=== PATIENT | male | born 1960 | race Caucasian/White ===

== ENCOUNTER 2017-02-24 14:40 | Observation (INO) | payer SELFPAY ==
--- NOTE | 2017-02-24 15:03 | DR.EXTPAIN ---
HPI - Time seen Time seen: 15:00 - PCP Primary Care Physician: SOLO APODACA - HPI Comment HPI Comment: HAPPEN BEFORE COMING. - Complaint/Symptoms Chief Complaint Doctor Comments: RIGHT ANKLE INJURY, SWELLING AND PAIN PRESENT. Chief Complaint:: INJURED RIGHT ANKLE ON [employer]. ANKLE SLIPPED BETWEEN MACHINE AND. COMPLAINS OF PAIN. EDEMA NOTED.PT STILL HAS HIS CARMELO TOPPED WORK BOOT ON AND NOTED MARCOS AT TOP OF IT - Nurses notes reviewed Nurses Notes Review: Yes - Source History Provided: Patient - Mode of arrival Mode of Arrival: Wheelchair - Timing Onset of Chief Complaint: 02/24/17 - Context History of: None - Associated signs and symptoms Associated Signs and Symptoms: Pain, Swelling, Bruising PMH - PMH Past Medical History: Yes Past Medical History: Anxiety, Hypertension Past Surgical History: Yes Surgical History: Other Past Surgical History Comment: BACK AND HERNIA - Family History History of Family Medical Conditions: Yes Family Medical History: Diabetes Mellitus - Social History Do you use any recreational Drugs:: No (RECOVERING ADDICT) Lives Where: Home - infectious screening In the last 2 months have you had wt loss of >10#?: NO Have you had fever, night sweats or hemotysis?: No Have you traveled outside the country in the last 6 months?: No Isolation: Standard ROS - Review of Systems Constitutional: No Symptoms Reported Eyes: No Symptoms Reported ENTM: No Symptoms Reported Respiratoy: No Symptoms Reported Cardiovascular: No Symptoms Reported Gastrointestinal/Abdominal: No Symptoms Reported Genitourinary: No Symptoms Reported Neurological: No Symptoms Reported Musculoskeletal: Right, Ankle Integumentary: No Symptoms Reported Hematologic/Lymphatic: No Symptoms Reported Endocrine: No Symptoms Reported All Other Systems: Reviewed and Negative PE - Vital Signs Vitals: Temperature 97.9 F Pulse Rate 74 Respiratory Rate 16 Blood Pressure [Right Arm] 117/73 Blood Pressure [Left Arm] 130/75 Blood Pressure 139/92 O2 Sat by Pulse Oximetry 96 - General Limitations: No Limitations General Appearance: Alert - Head Head Exam: Normal Inspection - Eyes Eye exam: Normal Appearance - ENT ENT Exam: Normal External Ear Exam - Neck Neck Exam: Trachea Midline - Chest Chest Inspection: Symmetric Chest Wall Rise - Respiratory Respiratory Exam: Normal Lung Sounds Bilat Respiratory Exam: Bilateral Clear to Auscultation - Cardiovascular Cardiovascular Exam: Regular Rate, Normal Rhythm, Normal Heart Sounds - Abdominal Exam Abdominal Exam: Normal Inspection - Extremities Extremities Exam: Tenderness (RT ANKLE SWOLLEN MEDIAL MALLEOLUS WITH TENDERNESS AND DECRESE ROM.) - Lower Extremities Gait Exam: Observed & Limited by Pain - Back Back Exam: Normal Inspection - Neurological Neurological Exam: Alert, Oriented X3 - Skin Skin Exam: Normal Color MDM - Differential Diagnosis Differential Diagnosis: Contusion, Fracture, Sprain Course - Treatment Treatment: SEE ORDERS - Consultation Consultation Comments: DISCUSS PATIENT WITH DR. KELLER. HE WILL ADMIT PT AND CONSULT ORTHO. - Education/Counseling Education/Counseling: Patient, Education Educated On: Diagnosis ROR - Labs Reviewed Laboratory Results Reviewed?: Yes Result Diagrams: 02/24/17 16:24 02/24/17 16:24 Laboratory: WBC 9.4 X10^3/uL (3.6-10.0) 02/24/17 16:24 RBC 5.12 X10^6/uL (4.7-6.0) 02/24/17 16:24 Hgb 16.1 g/dL (13.5-18.0) 02/24/17 16:24 Hct 46.4 % (42.0-54.0) 02/24/17 16:24 MCV 90.5 fL (80.0-100.0) 02/24/17 16:24 MCH 31.3 pg (27.0-34.0) 02/24/17 16:24 MCHC 34.6 g/dL (33.0-35.0) 02/24/17 16:24 RDW 12.9 % (11.6-16.5) 02/24/17 16:24 Plt Count 310 X10^3/uL (150.0-450.0) 02/24/17 16:24 MPV 7.9 fL (7.4-11.0) 02/24/17 16:24 Neut % 64.8 % (42.0-75.0) 02/24/17 16:24 Lymph % 21.9 % (21.0-51.0) 02/24/17 16:24 Reagan % 9.5 % (0.0-13.0) 02/24/17 16:24 Eos % 2.8 % (0.9-2.9) 02/24/17 16:24 Baso % 1.0 % (0.2-1.0) 02/24/17 16:24 Neut # 6.1 x10^3/uL (2.2-4.8) H 02/24/17 16:24 Lymph # 2.0 X10^3/uL (1.3-2.9) 02/24/17 16:24 Reagan # 0.9 x10^3/uL (0.3-0.8) H 02/24/17 16:24 Eos # 0.3 x10^3/uL (0.0-0.2) H 02/24/17 16:24 Baso # 0.1 X10^3/uL (0.0-0.1) 02/24/17 16:24 Absolute Nucleated RBC 0.1 /100WBC 02/24/17 16:24 - XRAY XRAY Interpreted by: Radiologist XRAY Findings: REPORT DISCUSS WITH PATIENT. - Diagnosis Discharge Problem: Closed right ankle fracture Qualifiers: Encounter type: initial encounter Qualified Code(s): S82.891A - Other fracture of right lower leg, initial encounter for closed fracture - Discharge Plan Condition: Stable - Follow ups/Referrals Follow ups/Referrals: SOLO APODACA [Primary Care Provider] - 3 days - Instructions
[2017-02-24] MEDS ORDERED: TORADOL 60 MG VIAL IM ONE (15:14)
[2017-02-24] MEDS ORDERED: TORADOL 60 MG VIAL ONE (15:17)
--- NOTE | 2017-02-24 15:20 | RAD ---
HISTORY: Right ankle pain status post injury. Study: Three views of the right ankle. Comparison: None. Findings: There is a displaced medial malleolus fracture with associated soft tissue swelling and effusion. The talar dome and ankle mortise otherwise appear intact. Remaining osseous structures appear intact. Sm all plantar base calcaneal enthesophyte. IMPRESSION: Medial malleolus fracture. Reported By:
--- NOTE | 2017-02-24 16:21 | RAD ---
Examination: Portable AP chest History: Preop Comparison 11/04/2015 Findings: Continued normal heart size with clear lungs and pleural spaces. Again is demonstrated a sp inal stimulator device in the thoracic spinal canal. Impression: No change; no acute disease. Reported By:
[2017-02-24 16:45] LABS: BASOPHILS # (AUTO) 0.1 X10^3/uL (0.0-0.1); EOSINOPHILS # (AUTO) 0.3 x10^3/uL (0.0-0.2); EOSINOPHILS % (AUTO) 2.8 % (0.9-2.9); HEMATOCRIT 46.4 % (42.0-54.0); HEMOGLOBIN 16.1 g/dL (13.5-18.0); LYMPHOCYTES % (AUTO) 21.9 % (21.0-51.0); MEAN CORPUSCULAR HEMOGLOBIN 31.3 pg (27.0-34.0); MEAN CORPUSCULAR HGB CONC 34.6 g/dL (33.0-35.0); MEAN CORPUSCULAR VOLUME 90.5 fL (80.0-100.0); MEAN PLATELET VOLUME 7.9 fL (7.4-11.0); MONOCYTES # (AUTO) 0.9 x10^3/uL (0.3-0.8); MONOCYTES % (AUTO) 9.5 % (0.0-13.0); NEUTROPHILS # (AUTO) 6.1 x10^3/uL (2.2-4.8); NEUTROPHILS % (AUTO) 64.8 % (42.0-75.0); PLATELET COUNT 310 X10^3/uL (150.0-450.0); RED BLOOD COUNT 5.12 X10^6/uL (4.7-6.0); RED CELL DISTRIBUTION WIDTH 12.9 % (11.6-16.5); WHITE BLOOD COUNT 9.4 X10^3/uL (3.6-10.0)
[2017-02-24 16:56] LABS: ALANINE AMINOTRANSFERASE 77 Units/L (12-78); ALBUMIN 4.3 g/dL (3.4-5.0); ALKALINE PHOSPHATASE 115 Units/L (46-116); ASPARTATE AMINO TRANSFERASE 39 Units/L (15-37); BLOOD UREA NITROGEN 11 mg/dL (7-18); CARBON DIOXIDE 25.8 mmol/L (21-32); CHLORIDE 102 mmol/L (98-107); SODIUM 138 mmol/L (136-145); TOTAL PROTEIN 7.9 g/dL (6.4-8.2); eGFR BLACK RACES > 60 (>60); eGFR NON BLACK RACES > 60 (>60)
[2017-02-24] MEDS ORDERED: ZOFRAN INJ 4 MG VIAL IVP PRN (18:58)
[2017-02-24] MEDS ORDERED: DILAUDID INJ IVP PRN (18:58)
[2017-02-24] MEDS: NS 1000 ML 1,000 ML IV SCH (20:31)
[2017-02-24 21:16] VITALS: BMI 22.0
[2017-02-25 03:57] LABS: BILIRUBIN,URINE NEGATIVE (NEGATIVE); BLOOD/HEMOGLOBIN,URINE NEGATIVE (NEGATIVE); GLUCOSE, URINE NEGATIVE (NEGATIVE); KETONES,URINE NEGATIVE (NEGATIVE); LEUKOCYTE ESTERASE ,URINE 1+ (NEGATIVE); NITRITES,URINE NEGATIVE (NEGATIVE); PH,URINE 6.5 (5.0 - 8.0); PROTEIN,URINE 1+ (NEGATIVE); UROBILINOGEN,URINE NORMAL (NORMAL)
[2017-02-25 04:06] LABS: AMORPHOUS SEDIMENT,UR 1+ /HPF (NEGATIVE); APPEARANCE,URINE CLEAR (CLEAR); BACTERIA,URINE NEGATIVE /HPF (NEGATIVE); COLOR,URINE DARK YELLOW (YELLOW); RBC,URINE NONE SEEN /HPF (NEGATIVE); SQUAMOUS EPITHELIAL CELL,UR RARE /HPF (NEGATIVE)
[2017-02-25] MEDS: NS 1000 ML 1,000 ML IV SCH (05:29)
[2017-02-25] MEDS ORDERED: D5 LR 1000 ML 1,000 ML IV ONE (07:23)
[2017-02-25] MEDS ORDERED: ANCEF 1 GM IV PREMIX* 1 GM/50 ML BAG IV ONE (07:23)
[2017-02-25] MEDS ORDERED: NAROPIN 0.75% EPI ONE (07:33)
[2017-02-25] MEDS ORDERED: BACITRACIN VIAL ONE (07:46)
[2017-02-25] MEDS ORDERED: FENTANYL INJ 100 mcg ONE (07:58)
[2017-02-25] MEDS ORDERED: NS IRRIGATION 1000 ML 1,000 ML with BACITRACIN VIAL 50,000 UNT IR ONE ×2 (08:39)
[2017-02-25] MEDS ORDERED: BACTROBAN OINT ONE (08:46)
[2017-02-25] MEDS ORDERED: NORCO 5/325 MG TAB PO PRN (09:04)
--- NOTE | 2017-02-25 09:04 | DR.CONSULT ---
Consult - Consultation for Day of: Date: 02/25/17 - Chief Complaint Chief Complaint: rt ankle fracture. - Allergies Allergies/Adverse Reactions: Allergies Allergy/AdvReac Type Severity Reaction Status Date / Time ciprofloxacin Allergy Verified 02/24/17 14:51 levofloxacin [From Levaquin] Allergy Verified 02/24/17 14:51 ofloxacin [From Floxin] Allergy Verified 02/24/17 14:51 - History of Present Illness History of Present Illness: fall and fractured rt ankle. seen in the ER. XR- Medial mal fracture. - Past Medical History Past Medical History: Anxiety, Hypertension - Past Surgical History Surgical History: Other - Family History Family Medical History: Diabetes Mellitus - Social History Does patient currently use any type of tobacco product: Yes Have you used tobacco products in the last 12 months: Yes Type of Tobacco Use: Smokeless How many years tobacco product used: 23 Alcohol Use: None Drug Use: Marijuana - Review of Systems Musculoskeletal: Leg Pain - Physical Exam Vital Signs: Temperature 98.1 F Pulse Rate [Right Brachial] 65 Pulse Rate 71 Respiratory Rate 20 Blood Pressure [Right Arm] 125/72 Blood Pressure [Left Arm] 130/75 Blood Pressure 136/72 O2 Sat by Pulse Oximetry 98 Musculoskeletal: Right, Ankle, Swelling, Tender, Crepitance - Plan Plan: ORIF medial malleolus.
[2017-02-25] MEDS ORDERED: PHENERGAN INJ 25 MG IVP PRN (09:09)
[2017-02-25] MEDS ORDERED: BENADRYL INJ 50 MG VIAL IVP PRN (09:09)
[2017-02-25] MEDS ORDERED: REGLAN INJ 10 MG VIAL IVP PRN (09:09)
[2017-02-25] MEDS ORDERED: ZOFRAN INJ 4 MG VIAL IVP PRN (09:09)
[2017-02-25] MEDS: DILAUDID INJ IVP PRN ×4 (09:15→09:35)
--- NOTE | 2017-02-25 09:19 | DR.H&P ---
H&P - History & Physical for Day of: H&P Date: 02/25/17 - Chief Complaint Chief Complaint: FALL, RIGHT ANKLE PAIN - Allergies Allergies/Adverse Reactions: Allergies Allergy/AdvReac Type Severity Reaction Status Date / Time ciprofloxacin Allergy Verified 02/24/17 14:51 levofloxacin [From Levaquin] Allergy Verified 02/24/17 14:51 ofloxacin [From Floxin] Allergy Verified 02/24/17 14:51 - History of Present Illness History of Present Illness: PT IS 56 WM FELL OFF EQUIPMENT WHILE WORKING WITH ACUTE RIGHT ANKLE PAIN AND INJURY. PT ADMITTED FOR PAIN CONTROL AND ORTHOPEDIC CONSULTATION. PT HAS PMH OF HTN, LILLY AND COPD - Past Medical History Past Medical History: Anxiety, Hypertension - Past Surgical History Surgical History: Other - Family History Family Medical History: Diabetes Mellitus - Social History Does patient currently use any type of tobacco product: Yes Have you used tobacco products in the last 12 months: Yes Type of Tobacco Use: Smokeless How many years tobacco product used: 23 Alcohol Use: None Drug Use: Marijuana - Review of Systems Constitutional: No Symptoms Reported Eyes: No Symptoms Reported ENT: No Symptoms Reported Cardiovascular: No Symptoms Reported Gastrointestinal: No Symptoms Reported Genitourinary: No Symptoms Reported Musculoskeletal: Leg Pain, Foot Pain Skin: Bruising, Ecchymosis Neurological: No Symptoms Reported - Physical Exam Vital Signs: Temperature 98.1 F Pulse Rate [Right Brachial] 65 Pulse Rate 71 Respiratory Rate 20 Blood Pressure [Right Arm] 125/72 Blood Pressure [Left Arm] 130/75 Blood Pressure 136/72 O2 Sat by Pulse Oximetry 98 Oriented: Normal Eyes: Normal Ear: Normal Nose: Normal Throat: Normal Respiratory: RLL Exp. Wheeze, LLL Exp. Wheeze Cardiovascular: Normal : Normal Auscultation: Bowel Sounds: Normal Palpation: Normal Tenderness: Normal Skin: Normal Musculoskeletal: Normal Psychiatric: Anxiety Affect: Anxious Speech Pattern: Clear, Appropriate - Assessment/Plan (1) Closed right ankle fracture Qualifiers: Encounter type: initial encounter Qualified Code(s): S82.891A - Other fracture of right lower leg, initial encounter for closed fracture Status: Acute Plan: ADMIT, PAIN CONTROL, ORTHO CONSULT. BP MONITORING (2) Anxiety Status: Chronic (3) Hypertension Status: Chronic
[2017-02-25] MEDS ORDERED: XYLOCAINE 2 % (PLAIN) ONE (09:25)
[2017-02-25] MEDS ORDERED: DIPRIVAN VIAL ONE (09:25)
[2017-02-25] MEDS ORDERED: VERSED ONE (09:25)
[2017-02-25] MEDS ORDERED: SUPRANE IN ONE (09:25)
[2017-02-25] MEDS ORDERED: ZOFRAN INJ 4 MG VIAL ONE (09:25)
--- NOTE | 2017-02-25 10:00 | RAD ---
Examination: Right ankle, three views History: Postop ORIF Comparison 02/24/2017 Findings: There are 2 partially threaded surgical screws now fixing the previously described medial m alleolar fracture in anatomic position and alignment. The ankle mortise remains congruent. No new abn ormality is demonstrated. Impression: Interval ORIF medial malleolar fracture. Reported By:
[2017-02-25] MEDS ORDERED: MOTRIN TAB 800 MG PO PRN (10:38)
[2017-02-25 13:18] VITALS: BP 137/90
[2017-02-25] MEDS ORDERED: TORADOL 60 MG VIAL IVP SCH (14:00)
--- NOTE | 2017-02-25 16:17 | OR.GENERIC ---
Post-Op Note Generic - Post-Op Note Operative Report: preoperative diagnosis-RIGHT ankle displaced medial malleolus fracture, closed Postoperative diagnosis-RIGHT ankle medial malleus fracture, displaced, closed Procedure-RIGHT ankle open reduction internal fixation Implants used-Allred, 40 cancellous cannulated screws 2 Indication-atient 56-year-old male had a history of fall and fractured the medial malleolus. Patient was seen in the emergency room and admitted for pain control and surgery. natural history as well as treatment discussions were done with him. Patient wanted to proceed with open reduction and fixation of the medial malleus fracture. Patient was seen in the preoperative holding area. Limb was marked. Consent was discussed with him and he consents for surgery. The patient got appropriate regional block. Patient got appropriate antibiotic. Pre-and postop surgical instructions were discussed with him. complications including but not limited to infection, neurovascular damage, hemorrhage, nonunion, malunion, symptomatic implant, ankle stiffness and arthritis, persistent pain, need for further procedures were discussed with him. He understood and verbalized of same. Procedure-patient was brought to the operating room. Patient was placed supine on the operating table. Patient was placed under general anesthesia and endotracheal intubation completed successfully. Tourniquet was placed on the thigh but was not inflated. RIGHT lower limb prepped and draped. C-arm was used throughout the procedure. Tourniquet inflated. A medial approach to the medial malleolus was used for fixation of the fracture.a curvilinear incision starting 2 cm distal to the anterior tip of medial malleolus and ending about 4 cm proximally the middle of the distal tibia. Saphenous vein and nerve were isolated and protected throughout the procedure. Fracture site exposed from anterior to posterior. Periosteum elevated at the fracture site. Fracture site mobilized andankle joint inspected. No free fragments noted in the ankle. Thorough irrigation done of the ankle. fracture reduced anatomicallyand held in place with the help of pointed reduction forceps. Image checked in the C- arm to confirm a perfect articular reduction. Preliminary K wire fixation done with 1.6 mm K wires perpendicular to the fracture plane. Another K wire placed a parallel to this in the posterior to the original K wire. Placement of K wire found to be satisfactory when checked in the C-arm. A cannulated drill was used to make an entry hole. The length of screws was measured. An anterior 40 cancellous cannulated partially threaded screw was placed. No need for washer was needed because of good quality of the bone. K wire removed. Same procedure was repeated with the posterior K wire and a 40 cannulated cancellous screw placed. Image checked in the C-arm and found to be satisfactory. Adequate compression at the fracture site noted. Tourniquet was deflated and hemostasis maintained. Thorough irrigation was done. Wound closed in layers. Splint reapplied. Patient was awoken up from the surgery. Patient was stable and afebrile. Patient had adequate pain control. Postop x-rays were obtained which shows satisfactory placement of the cancellous screws., Maintenance of ankle mortise. Postop instructions were discussed with the patient as well as the family. Advised nonweightbearing with the help of crutches. Limb elevation, ice and compression as advised. Keep the dressing clean and dry. Return to the office as advised.
== END 2017-02-25 14:55 | disposition home or self-care (01) ==
LOC: ER 15:03 → OBS 17:50
PROVIDERS: ADMIT Internal Medicine; ATTEND Internal Medicine
PROC: 0QSG04Z Reposition Right Tibia with Internal Fixation Device, Open Approach (ICD-10-PCS; principal; 2017-02-25 07:30)
DX: S82.251A Displaced comminuted fracture of shaft of right tibia, initial encounter for closed fracture (principal); X58.XXXA Exposure to other specified factors, initial encounter; Y92.89 Other specified places as the place of occurrence of the external cause; I10 Essential (primary) hypertension; R94.31 Abnormal electrocardiogram [ECG] [EKG]; J44.9 Chronic obstructive pulmonary disease, unspecified; F41.8 Other specified anxiety disorders
CPT/HCPCS: 29515; 36415; 64445; 71045; 73610; 76000; 80053; 81001; 85025; 85610; 85730; 93005; 93010; 96365; 96372; 99284; A4222; G0378; J0690; J1170; J1885; J2001; J2250; J2405; J3010; J3490; J7120